=== PATIENT | female | born 1990 | race American Indian/Alaskan Native ===

== ENCOUNTER 2017-11-27 00:40 | Emergency (ER) | payer OTHER ==
[2017-11-27 01:04] VITALS: BP 161/77; TEMP 98.1
--- NOTE | 2017-11-27 01:10 | ED PDOC ---
Arrival/HPI - General Chief Complaint: Female Genitourinary Time Seen by Provider: 11/27/17 01:06 Historian: Patient - History of Present Illness Narrative History of Present Illness (Text): 11/27/17 01:10 27 year old female, with no significant past medical history, presents to the Emergency department complaining of prolonged menstruation. Patient informs bleeding for 17 days with periodic clots in blood but did not visit an [employer]. Patient states similar symptoms from past episode for which she was diagnosed with iron deficiency. Patient denies any chest pain, shortness of breath, abdominal pain, hematuria, hematochezia, urinary output changes, vaginal discharge, fever, chills, nausea, vomiting, diarrhea or any other complaints. Time/Duration: > week Symptom Onset: Gradual Symptom Course: Unchanged Activities at Onset: Light Past Medical History - Provider Review Nursing Documentation Reviewed: Yes - Psychiatric Hx Substance Use: No Family/Social History - Physician Review Nursing Documentation Reviewed: Yes Family/Social History: No Known Family HX Smoking Status: Never Smoked Hx Alcohol Use: Yes Frequency of alcohol use: Socially Hx Substance Use: No Allergies/Home Meds Allergies/Adverse Reactions: Allergies No Known Allergies Allergy (Verified 11/27/17 01:00) Review of Systems - Physician Review All systems were reviewed & negative as marked: Yes - Review of Systems Constitutional: Normal. absent: Fevers Eyes: Normal ENT: Normal Respiratory: Normal. absent: SOB Cardiovascular: Normal. absent: Chest Pain Gastrointestinal: Normal. absent: Abdominal Pain, Diarrhea, Nausea, Vomiting, Hematochezia Genitourinary Female: Vaginal Bleeding (17 days ). absent: Hematuria, Urine Output Changes, Vaginal Discharge Musculoskeletal: Normal Skin: Normal Neurological: Normal Endocrine: Normal Hemo/Lymphatic: Normal Psychiatric: Normal Physical Exam Vital Signs Reviewed: Yes Vital Signs Temp Pulse Resp BP Pulse Ox 11/27/17 01:09 98.1 F 79 19 99 11/27/17 01:00 98.1 F 74 18 161/77 H 100 Temperature: Afebrile Blood Pressure: Normal Pulse: Regular Respiratory Rate: Normal Appearance: Positive for: Well-Appearing, Non-Toxic, Comfortable Pain Distress: None Mental Status: Positive for: Alert and Oriented X 3 - Systems Exam Head: Present: Atraumatic, Normocephalic Pupils: Present: PERRL Extroacular Muscles: Present: EOMI Conjunctiva: Present: Normal Mouth: Present: Moist Mucous Membranes Neck: Present: Normal Range of Motion Respiratory/Chest: Present: Clear to Auscultation, Good Air Exchange. No: Respiratory Distress, Accessory Muscle Use Cardiovascular: Present: Regular Rate and Rhythm, Normal S1, S2. No: Murmurs Abdomen: Present: Normal Bowel Sounds. No: Tenderness, Distention, Peritoneal Signs Back: Present: Normal Inspection Upper Extremity: Present: Normal Inspection. No: Cyanosis, Edema Lower Extremity: Present: Normal Inspection. No: Edema Neurological: Present: GCS=15, CN II-XII Intact, Speech Normal Skin: Present: Warm, Dry, Normal Color. No: Rashes Psychiatric: Present: Alert, Oriented x 3, Normal Insight, Normal Concentration Medical Decision Making ED Course and Treatment: 11/27/17 01:15 Impression: 27 year old female presents to the Emergency department for prolonged menstruation period. Plan: -- Labs -- Reassess and disposition Progress Notes: 11/27/17 01:16 - Lab Interpretations Lab Results: 11/27/17 01:26 Lab Results 11/27/17 01:26: WBC 5.4, RBC 2.84 L, Hgb 8.3 L, Hct 26.7 L, MCV 94.0, MCH 29.2, MCHC 31.1, RDW 14.9 H, Plt Count 301, MPV 9.0, Gran % 53.3, Lymph % (Auto) 35.0 , [place] % (Auto) 6.7 H, Eos % (Auto) 4.6, Baso % (Auto) 0.4, Gran # 2.88, Lymph # 1.9, [place] # 0.4, Eos # 0.3, Baso # 0.02 - Scribe Statement The provider has reviewed the documentation as recorded by the Scribe Paulino Gallegos. All medical record entries made by the Scribe were at my direction and personally dictated by me. I have reviewed the chart and agree that the record accurately reflects my personal performance of the history, physical exam, medical decision making, and the department course for this patient. I have also personally directed, reviewed, and agree with the discharge instructions and disposition. Disposition/Present on Arrival - Present on Arrival Any Indicators Present on Arrival: No History of DVT/PE: No History of Uncontrolled Diabetes: No Urinary Catheter: No History of Decub. Ulcer: No History Surgical Site Infection Following: None - Disposition Have Diagnosis and Disposition been Completed?: Yes Diagnosis: Menorrhagia, Iron deficiency anemia Disposition: HOME/ ROUTINE Disposition Time: 03:00 Patient Plan: Discharge Patient Problems: Current Active Problems Problem Status Onset Iron deficiency anemia Acute Menorrhagia Acute Condition: STABLE Prescriptions: Ferrous Gluconate 324 mg PO DAILY #30 tablet Forms: [facility] ([place]e)
[2017-11-27 01:11] VITALS: PULSE 79; O2SAT 99
[2017-11-27 02:28] LABS: BASO # 0.02 K/mm3 (0.0-2.0); BASO % 0.4 % (0.0-3.0); EOS # 0.3 (0.0-0.7); EOS % 4.6 % (1.5-5.0); GRAN # 2.88 (1.4-6.5); GRAN % 53.3 % (50.0-68.0); HEMOGLOBIN 8.3 g/dL (12.0-16.0); LYMPH # 1.9 (1.2-3.4); MEAN CORPUSCULAR HEMOGLOBIN 29.2 pg (25.0-35.0); MEAN CORPUSCULAR HGB CONC 31.1 g/dl (31.0-37.0); MONO # 0.4 (0.1-0.6); MONO % 6.7 % (1.0-6.0); RBC 2.84 10^6/uL (3.5-6.1); RED CELL DISTRIBUTION WIDTH 14.9 % (11.5-14.5); WHITE BLOOD COUNT 5.4 10^3/ul (4.5-11.0)
[2017-11-27 02:56] VITALS: RESP 18
== END 2017-11-27 02:56 | disposition home or self-care (01) ==
LOC: ED 00:40 → MERGE 00:40 → ED 02:56
DX: N92.0 Excessive and frequent menstruation with regular cycle (principal); D50.9 Iron deficiency anemia, unspecified